=== PATIENT | female | born 1955 | race Caucasian/White ===

== ENCOUNTER → 2017-09-13 | Outpatient (CLI) | payer OTHER ==
[2017-09-13 09:36] LABS: BASO % 0.5 %; BASO ABS # 0.02 K/uL (0-0.2); EOS % 3.3 %; EOS ABS # 0.13 K/uL (0-0.5); HEMATOCRIT 42.3 % (37-47); HEMOGLOBIN 14.2 g/dL (12.0-16.0); LYMPH % 31.6 %; LYMPH ABS # 1.26 K/uL (1.2-3.4); MEAN CORPUSCULAR HEMOGLOBIN 30.2 pg (25-34); MEAN CORPUSCULAR HGB CONC 33.6 g/dl (32-36); MEAN PLATELET VOLUME 10.8 fL (7.4-10.4); MONO % 9.3 %; MONO ABS # 0.37 K/uL (0.11-0.59); NEUT % 55.3 %; NEUT ABS # 2.21 K/uL (1.4-6.5); PLATELET COUNT 214 K/uL (130-400); RED CELL DISTRIBUTION WIDTH CV 12.7 % (11.5-14.5); RED CELL DISTRIBUTION WIDTH SD 41.9 fL (36.4-46.3); WHITE BLOOD COUNT 3.99 K/uL (4.8-10.8)
[2017-09-13 14:32] LABS: BLOOD UREA NITROGEN 23 mg/dl (7-18); CARBON DIOXIDE 32 mmol/L (21-32); CREATININE 0.87 mg/dl (0.60-1.20); GLUCOSE 72 mg/dl (70-99); POTASSIUM 3.9 mmol/L (3.5-5.1); SODIUM 140 mmol/L (136-145)
[2017-09-13 14:43] LABS: CHOLESTEROL 190 mg/dl (0-200); LDL CHOLESTEROL CALCULATED 110 mg/dl
== END | disposition home or self-care (01) ==
LOC: C.LAB1850 07:15
PROVIDERS: ATTEND Nurse Practitioner Adult Health
DX: M19.90 Unspecified osteoarthritis, unspecified site (principal); M25.50 Pain in unspecified joint

== ENCOUNTER → 2017-09-14 | Outpatient (CLI) | payer OTHER ==
--- NOTE | 2017-09-14 17:05 | DIAGNOSTIC IMAGING REPORT ---
RIGHT ANKLE 3 VIEWS HISTORY: W19.XXXA [id number] Ankle pain, [id number] Swelling of ankle COMPARISON: None. FINDINGS: Tiny plantar and posterior calcaneal spurs. Mild soft tissue swelling. No dislocation. Tiny linear ossific density distal to the tip of the lateral malleolus. This is consistent with a age-indeterminate avulsion fracture. No radiopaque foreign bodies. IMPRESSION: Tiny linear ossific density distal to the tip of the lateral malleolus consistent with an age-indeterminate avulsion fracture. Mild soft tissue swelling within the right ankle. Electronically signed by: Theron Cota M.D. 09/14/2017 5:03 PM Dictated Date/Time: 09/14/2017 5:02 PM
--- NOTE | 2017-09-14 17:11 | DIAGNOSTIC IMAGING REPORT ---
L KNEE 3 VIEWS, R KNEE 3 VIEWS CLINICAL HISTORY: M19.90 [id number] Bilateral knee [id number] COMPARISON STUDY: None. FINDINGS: No acute fracture or dislocation within the right or left knee. No significant knee effusions. Cartilage spaces within the left knee are maintained. Mild cartilage space narrowing within the medial compartment of the right knee. There is small patellar osteophytes bilaterally. Small marginal osteophytes within the right knee compartments. Soft tissues are unremarkable. Degenerative changes at the proximal tibial/fibular articulation. IMPRESSION: 1. No fracture or dislocation within the right or left knee. 2. Minor bilateral knee arthritic changes described above. Electronically signed by: Theron Cota M.D. 09/14/2017 5:10 PM Dictated Date/Time: 09/14/2017 5:07 PM
--- NOTE | 2017-09-14 17:11 | DIAGNOSTIC IMAGING REPORT ---
L KNEE 3 VIEWS, R KNEE 3 VIEWS CLINICAL HISTORY: M19.90 [id number] Bilateral knee [id number] COMPARISON STUDY: None. FINDINGS: No acute fracture or dislocation within the right or left knee. No significant knee effusions. Cartilage spaces within the left knee are maintained. Mild cartilage space narrowing within the medial compartment of the right knee. There is small patellar osteophytes bilaterally. Small marginal osteophytes within the right knee compartments. Soft tissues are unremarkable. Degenerative changes at the proximal tibial/fibular articulation. IMPRESSION: 1. No fracture or dislocation within the right or left knee. 2. Minor bilateral knee arthritic changes described above. Electronically signed by: Theron Cota M.D. 09/14/2017 5:10 PM Dictated Date/Time: 09/14/2017 5:07 PM
== END | disposition home or self-care (01) ==
LOC: C.RAD1850 15:57
PROVIDERS: ATTEND Nurse Practitioner Adult Health
DX: M19.90 Unspecified osteoarthritis, unspecified site (principal); M25.561 Pain in right knee; M25.562 Pain in left knee; M25.473 Effusion, unspecified ankle; M25.571 Pain in right ankle and joints of right foot; W19.XXXA Unspecified fall, initial encounter

== ENCOUNTER 2024-07-25 10:49 | Observation (INO) ==
--- NOTE | 2024-06-22 10:41 | PAT Medication Instructions ---
Medication Instructions Date of Service June 22, 2024 Home Medications atorvastatin 20 mg tablet 20 mg PO HS ibuprofen 400 mg tablet 400 mg PO Q8H PRN Pain MEDICATION INSTRUCTIONS: ASK your surgeon for instructions ibuprofen 400 mg tablet 400 mg PO Q8H PRN Pain Take evening before surgery atorvastatin 20 mg tablet 20 mg PO HS Other Notes Remember: NOTHING TO EAT OR DRINK AFTER MIDNIGHT If you have any questions please call us at [phone] or [phone] or [phone] or [phone]
--- NOTE | 2024-07-02 13:08 | Anesthesiology Consultation ---
Date of Service July 02, 2024 Assessment & Plan (1) Encounter for pre-operative examination: - awaiting [facility] PCP clearance regarding abnormal CXR, especially in setting of abnormal CXR 03/2024 and persistent symptoms per patient. Patient made aware of abnormal CXR and to contact her PCP. Optimization form and PAT testing to be faxed to [facility] PCP, Dr. Brianna Astorga. Chart Review Chart Review: Pending: Refer to Additional Notes / Consult section and Patient seen in Pre Admission Testing Teaching & Discussion Pre-Anesthesia Teaching/Discussion Notes: Instructed NPO after midnight before surgery, except medications with 15 cc of water. Medication instructions provided according to the PAT guidelines. History Surgery Operation Date: 07/25/24 10:45 Proposed Procedures p Right Total Knee Arthroplasty - Alfonso Cerda MD Height/Weight Height: 5 ft 8.5 in Weight: 77.7 kg Allergies Allergy/AdvReac Type Severity Reaction Status Date / Time nickel Allergy Unknown skin Verified 06/21/24 15:29 irritation Medications Home Medications Medication Instructions Recorded Confirmed Last Taken atorvastatin 20 mg tablet 20 mg PO HS 01/19/21 06/21/24 06/06/23 ibuprofen 400 mg tablet 400 mg PO Q8H PRN Pain 03/15/24 06/21/24 Unknown Past Medical History Medical History (Updated 07/02/24 @ 16:23 by Enedelia Reagan PA-C) Arthritis Benign colonic polyp removed History of urinary urgency urge incontinence Hyperlipidemia Patient denies h/o stroke, seizures, heart attack, heart failure, DM, HTN, blood clots/DVTs or blood transfusions. Exercise / Class Metabolic Activity II 4-5 Yardwork/Stairs/Walk up hill (denies chest discomfort or shortness of breath with one flight of stairs) Past Family History Family History Other Myocardial infarction Denies family history of Ovarian cancer Prostate cancer Breast cancer Colorectal cancer Past Surgical History Surgical History (Updated 07/02/24 @ 13:05 by Enedelia Reagan PA-C) H/O toe surgery right great toe History of cataract extraction History of tonsillectomy History of tooth extraction Hx of local excision of skin lesion S/P colonoscopy S/P right knee arthroscopy years ago Past Anesthesia History No Hx of Anesthesia Complications and No Family Hx of Anesthesia Complications History of PONV No Hx of PONV and No Hx of Motion Sickness Social History Smoking Status: Never smoker Do You Dip or Chew Tobacco: No Hx Alcohol Use: Yes alcohol intake frequency: holidays/special occasions only Hx Substance Use: No substance use type: does not use Last Used Substance Other:: years ago-occasional use Review of Systems Occasional snoring, denies witnessed apneas. Onset of sore throat and cough productive of sputum. She states currently has residual cough of clear or yellow sputum. Mild chest discomfort when extended coughing-denies currently, denies shortness of breath, wheezing, pleuritic chest discomfort, fever, chills, leg swelling, or myalgias. Patient was advised to call her PCP and notify PAT if symptoms do not resolve by several days before surgery. Patient denies chest pain, shortness of breath, dyspnea on exertion, reflux, fever, chills, wheezing, or palpitations. Physical Exam Vital Signs Vitals BP 130/80 P 79 TEMP 98.9 SP02 95% on RA RESP 18 Physical Patient resting comfortably in chair in no acute distress, alert and oriented, responding appropriately throughout visit Full cervical extension range of motion without pain TMD 3.5 finger breadths Mallampati Score 2 Dentition: several caps/crowns; denies chipped or loose teeth, implants or bridges Lungs: normal respiratory effort. Good air movement, clear throughout to auscultation, no adventitious breath sounds Cardiac: regular rate and rhythm, no murmurs noted Carotid arteries: negative bruit bilat Lab Results Anesthesia Preop Results Results Anesthesia Widget: WBC 6.22 K/ul (4.8-10.8) 07/02/24 Hgb 14.1 g/dl (12.0-16.0) 07/02/24 Hct 42.0 % (37.0-47.0) 07/02/24 Plt 244 K/uL (130-400) 07/02/24 Na 139 mmol/L (136-145) 07/02/24 K 4.0 mmol/L (3.5-5.1) 07/02/24 Cl 104 mmol/L (98-107) 07/02/24 CO2 32 mmol/L (21-32) 07/02/24 BUN 15 mg/dl (6-23) 07/02/24 Creat 0.89 mg/dl (0.6-1.2) 07/02/24 Glucose Level 129 mg/dl (70-99(Fasting)) H 07/02/24 PT 10.5 Seconds (9.0-12.0) 07/02/24 PTT 24 Seconds (21-31) 07/02/24 INR 1.0 (0.9-1.1) 07/02/24 Blood Type A Positive 07/02/24 Antibody Screen NEGATIVE 07/02/24 Testing Electrocardiogram Date: 07/02/24 NSR, rate 79 bpm Chest X-Ray Date: 07/02/24 Early pneumonia right upper lobe.
[~2024-07-25 10:49] MED LIST: BUPIVACAINE 0.5 % 5 MG/1 ML PF 10ML VIAL ONE; ROPIVACAINE 0.5% 5 MG/ML 30 ML VIAL ONE
[2024-07-25] MEDS ORDERED: PROPOFOL IV EMULSION 10 MG/ML 20 ML VIAL IV ONE ×2 (11:03→13:35)
[2024-07-25] MEDS ORDERED: MIDAZOLAM HCL 1 MG/ML 2ML VIAL ONE (11:04)
[2024-07-25] MEDS ORDERED: fentaNYL citrate PF 100 MCG/2 ML VIAL ONE (11:04)
--- NOTE | 2024-07-25 11:04 | History & Physical Bridge Note ---
Date of Service July 25, 2024 History & Physical Bridge Note I have examined the patient, reviewed the History & Physical and in the interval since the performance of the History & Physical I have noted the following changes of clinical significance: no changes noted
[2024-07-25] MEDS: dexAMETHasone**PF** 10 MG/ML VIAL IV SCH (11:13)
[2024-07-25] MEDS: METOCLOPRAMIDE HCL 10 MG TABLET PO SCH (11:13)
[2024-07-25] MEDS: ACETAMINOPHEN 500 MG TAB PO SCH ×2 (11:13→21:59)
[2024-07-25] MEDS: CeleBREX 200 MG CAP PO SCH (11:13)
[2024-07-25] MEDS: LR 60ML/HR IV SCH (11:13)
[2024-07-25] MEDS: FAMOTIDINE 20 MG TAB PO SCH (11:13)
[2024-07-25] MEDS: LR 500ML BOLUS, THEN 15ML/HR IV SCH (11:14)
[2024-07-25] MEDS: ceFAZolin 2000MG 2,000 MG/15 ML SYR IV SCH (12:43)
[2024-07-25] MEDS ORDERED: ONDANSETRON INJ 2 MG/ML 2 ML VIAL ONE (12:50)
[2024-07-25] MEDS: ROPIV 0.5% 246mg, Ketorolac 30mg, EPINEPHrine 0.5mg in NSS INFIL SCH (13:21)
[2024-07-25] MEDS: ORTHO JOINT ANESTHETIC ONE (13:21)
[2024-07-25] MEDS: TRANEXAMIC ACID 1,000 MG **IV Intra-op IV SCH (13:39)
--- NOTE | 2024-07-25 14:32 | Operative Report ---
PG Post Operative Report Pre & Post Diagnosis Operation Date: 07/25/24 12:30 Pre-Op Diagnosis: Right Knee Degenerative Joint Disease Post-Op Diagnosis: Right Knee Degenerative Joint Disease I identified the patient and participated in the time-out.: Yes Procedure Operation Date: 07/25/24 12:30 Actual Procedures p Right Total Knee Arthroplasty(Right) - Alfonso Cerda MD Surgeon Alfonso Cerda MD [facility] Magdi Vences PA-C Estimated Blood Loss 50 Findings Consistent with Post-Op Diagnosis Operative findings revealed a valgus aligned knee. She has advanced lateral compartment arthritis with [id number] disease the entire lateral compartment. She also had some grade 4 changes of the patella. Moderate-sized joint effusion. Specimens Right knee sent for pathology. Anesthesia Type Spinal MAC Complications none Indications Patient is a 68-year-old female who had a several year history of increasing right knee pain discomfort and progressive limitations due to the pain. She been through extensive conservative treatment which became less successful over time. X-rays show advanced right knee lateral compartment arthritis. She elected proceed with total knee arthroplasty. Patient reports an nickel allergy and therefore we used a Cabrera [employer]hew journey 2 zirconium knee arthroplasty. Description of Procedure Operative implants consist of: 1 Cabrera [employer] Nephew journey 2 size 5 right posterior stabilized femoral component 2. Cabrera [employer] Nephew right size 3 tibial tray. 3. 9 mm posterior stabilized polyethylene insert. 4. 32 x 9 all poly patella. The patient was taken to the op room, identified, placed on the operating table in the supine position. All conductors were appropriately padded. IV antibiotics arrived by anesthesia team. A spinal anesthetic and adductor canal block had been provided provided in the holding area. Holder catheter was placed in sterile fashion. Right thigh high tourniquet was then placed in the right lower extremities then prepped and draped in the usual sterile fashion. The right leg was elevated and exsanguinated with use of an Esmarch and a turn was placed at 300 mmHg. An anterior approach of the right knee was then performed to longitudinal incision centered over the patella. Sharp dissection was got through subcutaneous tissue down the extensor mechanism. A medial parapatellar arthrotomy incision was made. Some subperiosteal dissection was carried out medially. The fat pad was dissected from Neath patella tendon. The lateral patellofemoral ligament was released. Patella subluxated laterally and the knee was flexed. The osteophytes taken off distal femur. The ACL and PCL then released from the distal femur and the tibia subluxated anteriorly. The external treatment LYMErix then placed on the anterior face the tibia and adjust ed 8 mm medially. Proximal tibial cut was made remove about 3 mm of bone from the medial side. Tibia sized to a size 3. Attention drawn the femur. The distal femur was entered with a sharp drill. Intramedullary canal was suction. A right 5 degree valgus cutting guide was placed. This femoral cutting block was pinned in place. The distal femoral cut was adjusted to take an additional 3 mm of bone off the distal femur and the cut was made. The femur was then sized to exactly a size 5. The AP cutting block was pinned parallel to the epicondylar axis which was 5 degrees of external rotation. The anterior cut, anterior cord, posterior cut, posterior chamfer cut, anterior chamfer cuts were made. The knee was then flexed. The remnants of the medial lateral menisci were excised. The osteophytes taken off the posterior aspect the femur. A trial femoral component was placed. The trochanteric device was then placed in the reamer and box chisel were then used to create the defect for the box. The trochlear component was placed. The tibia was then subluxated anteriorly and the tibia was pinned in place in Tala external rotation. The drill and stem punch use great defect in proximal tibia for the tibial tray. The knee was then trialed and the 9 mm insert fit most appropriately. Attention drawn the patella. The patella was cleaned of all soft tissues. Patella thickness measured 21 mm in thickness and was cut down to 14. It was sized to a size 32 patella. The locals were drilled for a 32 patella. The lateral aspect removed. Patella button was placed. Knee was taken through range of motion patella tracked nicely with no thumbs test. Attention drawn to placement permanent components. Nupathe all trial components were removed. Bone plug was placed into this femur limit blood loss. Double batch [place] G cement was mixed. A Cabrera [employer] Nephew size 5 right posterior stabilized femoral component, size 3 tibial tray, a 9 mm posterior Byce polyethylene insert, and a 32 x 9 all poly patella then cemented in place. The knee was brought out into full extension till cement hardened. Final cement check was then performed. The pericapsular tissues were injected with total of 100 cc of Ortho mix. Patient did receive 1 g tranexamic acid. The tourniquet was then let down for final turn time 56 minutes. Hemostasis assured with electrocautery. Extensor Meclomen then closed with combination 1 PDS suture #0 Vicryl suture in a [id number] fashion. Extensor Meclomen was checked found to be intact with subcutaneous tissue then closed with 2 Dexon suture in buried interrupted fashion skin was closed skin joaquin. Leg was then cleaned and dried and sterile dressed with Xeroform, 4 fours, sterile cast padding, Jayme bandage were applied. Patient then transferred to the recovery room in stable condition. Patient tolerated procedure well and there were no complications. Magdi Vences, my physician litigation assistant, was present for the entire procedure. His assistance was essential and required for appropriate patient positioning, prepping and draping, surgical exposure, performing the technical details of the operation, placement the implants, closure of the wound, and placement of the sterile bandage. I attest to the content of the Intraoperative Record and any orders documented therein. Any exceptions are noted below.
--- NOTE | 2024-07-25 14:52 | XRay Report ---
XR knee RT 1 or 2V routine CLINICAL HISTORY: Surgical Post Op COMPARISON: None FINDINGS: Right knee prosthesis shows no hardware complication. There is expected soft tissue gas. S kin joaquin are present. IMPRESSION: Unremarkable postoperative exam. ACT 112: Negative or not required by law. Electronically signed by: Nathanael Prescott M.D. 07/25/2024 2:50 PM
--- NOTE | 2024-07-25 15:17 | Anesthesiology Progress Note ---
Date of Service July 25, 2024 Anesthesia Post Procedure Vital Signs Vital Signs: Temp Pulse Resp BP Pulse Ox O2 Del Method O2 Flow Rate 07/25/24 15:05 88 17 134/79 5 L Room Air 07/25/24 14:55 89 15 135/71 96 Room Air 07/25/24 14:45 94 H 16 123/78 98 Room Air 07/25/24 14:45 95 H 22 131/76 97 Room Air 07/25/24 14:35 93 H 19 126/69 96 Room Air 07/25/24 14:28 36 C L 94 H 20 114/58 L 98 Oxymask 6 07/25/24 10:48 36.6 C 90 20 154/100 H 97 Room Air Pain Intensity Bilateral Head: Pain Intensity: 3 Notes Mental Status: alert / awake / arousable Patient Amnestic to Procedure: Yes Nausea / Vomiting: adequately controlled Pain: adequately controlled Airway Patency, RR, SpO2: stable & adequate BP & HR: stable & adequate Hydration State: stable & adequate Neuraxial Anesthesia: was administered and sensory block is resolving Anesthetic Complications: no major complications apparent
[2024-07-25] MEDS ORDERED: bisacodyL 10 MG SUPP PR PRN (17:06)
[2024-07-25] MEDS ORDERED: ALUMINUM/MAGNESIUM SUSP 30 ML UDC PO PRN (17:06)
[2024-07-25] MEDS ORDERED: HYDROmorphone INJ 0.5 MG/0.5 ML SYR IV PRN (17:06)
[2024-07-25] MEDS ORDERED: NALOXONE HCL 0.4 MG/1 ML VIAL/CARP IV PRN (17:06)
[2024-07-25] MEDS ORDERED: METOCLOPRAMIDE HCL INJ 5 MG/ML 2 ML VIAL IV PRN (17:06)
[2024-07-25] MEDS ORDERED: MAGNESIUM HYDROXIDE SUSP 30 ML UDC PO PRN (17:06)
[2024-07-25] MEDS ORDERED: ONDANSETRON INJ 2 MG/ML 2 ML VIAL IV PRN (17:06)
[2024-07-25] MEDS: KETOROLAC TROMETHAMINE 15 MG/ML VIAL IV SCH (17:51)
[2024-07-25] MEDS: ASCORBIC ACID 500 MG TAB PO SCH (18:30)
--- OUTSIDE RECORDS SUMMARY | 2024-07-25 20:59 | External Medical Summary | Summary of Care ---
Author Name Unknown Organization [facility] Address [address] [place] [address] Phone [phone] Care Team Providers Care Health Social Work Professor Name Role Phone Brianna Astorga DO Primary Care Provider [phone] Reason for Visit * Reason Comments Follow Up Pt here for a f/u fo rm an abnormal chest x ray, pt has surgery (knee replacement) on 07/25/24 Encounter Details Date Type Department Care Team (Latest Contact Info) Description 07/13/2024 9:40 AM EDT Office Visit Family Practice [facility] [address] [facility] [place] [address] Francis Wilkins [facility] [address] [facility] [address] Community acquired pneumonia of right upper lobe of lung*; Primary osteoarthritis of one knee, right Allergies Active Allergy Reactions Criticality Noted Date Comments Azithromycin 07/04/2024 Itching of extremities Nickel 02/18/2014 Contact dermatitis Other Reaction(s): skin irritation documented as of this encounter (statuses as of 07/13/2024) Medications Benefiber Oral Powder Take by mouth . Active Atorvastatin Calcium 20 MG Oral Tablet (Lipitor)Indica tions:Hyperlipi demia LDL goal <160 TAKE 1 TABLET EVERY MORNING 90 Tablet 2 5 Active Fish Oil 300 MG Oral Capsule Take by mouth. 07/14/19 25 Discontinu ed(Medicat ion List Clean Up) Vitamin D3-Vitamin C 1000-500 UNIT-MG Oral Capsule Take by mouth. 07/14/19 25 Discontinu ed(Medicat ion List Clean Up) documented as of this encounter (statuses as of 07/13/2024) Active Problems Problem Noted Date Diagnosed Date Polyarthralgia 09/21/2023 Seborrheic keratoses 02/04/2021 Hyperlipidemia LDL goal <160 documented as of this encounter (statuses as of 07/13/2024) Immunizations Name Administration Dates Next Due COVID-19 mRNA, LNP-s, No Pre serve, 2-Dose Series (Pfizer) 03/20/2021,07/21/2020,06/30/2020 COVID-19, MRNA-LNP, PF, 30 M CG/0.3 mL, 12 YRS AND ABOVE, IM (PFIZER-Comirnaty) 01/12/2024 Pneumococcal Conjugate Vacc, 13 Valent (Prevnar) 01/15/2021 Pneumococcal Polysaccharide PPV23 (Pneumovax) 02/08/2022 Seasonal Influenza Vac., MDV , IM, 0.5 mL (Fluzone) 01/03/2020,02/21/2017,03/24/2015 Seasonal Influenza, High Dos e, Trivalent, PF, IM (Fluzone HD) 01/06/2024 Seasonal Influenza, PF, 6 M & above, IM , (FluLaval or Fluzone) 01/24/2018 Seasonal Influenza, Quadriva lent Hd (Fluzone Hd) 02/09/2023,02/08/2022,02/25/2021 Seasonal Influenza, Quadriva lent, No Preserve, IM 02/06/2019,02/21/2017,03/18/2016 TDAP (age 10 and older)(Boostrix) 04/17/2015, Varicella Zoster Vaccine (Adult) 12/21/2016 Zoster Vaccine Recombinant (Shingrix) 03/14/2020 ,01/03/2020 documented as of this encounter Social History Tobacco Use Types Packs/Day Years Used Date Smoking Tobacco: Never Passive Smoke Exposure: Past Smokeless Tobacco: Never Comments:Father smoked as a child Alcohol Use Standard Drinks/Week Comments Yes 0 (1 standard drink = 0.6 oz pur e alcohol) socially PHQ-2 Answer Date Recorded PHQ Adult Total Score 0 03/06/2024 Hunger Vital Sign Answer Date Recorded Within the past 12 months, y ou worried that your food would run out before you got the money to buy more. Never true 02/29/20 24 Within the past 12 months, t he food you bought just didn't last and you didn't have money to get more. Never true 02/29/2024 Childcare Answer Date Recorded Do you feel overwhelmed with taking care of a child, family member or friend? No 02/29/2024 Does your family need help f inding childcare? (Household - for ages 0-17 years) Not on file 02/29/2024 Clothing Answer Date Recorded Have you been unable to get clothing when it was really needed? No 02/29/2024 Is your family able to get c lothes or diapers when needed? (Household - for ages 0-17 years) Not on file 02/29/2024 Personal Safety Answer Date Recorded Do you feel unsafe or have concerns for your saf ety? No 02/29/2024 Do you have concerns for you r family's safety? (Household - for ages 0-17 years) Not on file 02/29/2024 Utilities Answer Date Recorded Do you have trouble paying y our heating, water, or electric bill? No 02/29/2024 Is your family able to pay t he heat, water, or electric bill? (Household - for ages 0-17 years) Not on file 02/29/2024 Does your family have access to good internet? (Household - for ages 0-17 years) Not on file 02/29/2024 Employment Status Answer Date Recorded Are you unemployed or without regular income? No 02/29/2024 Does the household have a re gular source of income? (Household - for ages 0-17 years) Not on file 02/29/2024 Social Connections Answer Date Recorded How often do you feel lonely or isolated from th ose around you? Never 02/29/2024 Financial Resource Strain Answer Date R ecorded Do you have any trouble payi ng for your medications, or do you think you might in the future? No 02/29/2024 Does your family have troubl e paying for medicine? (Household - for ages 0-17 years) Not on file 02/29/2024 Transportation Needs Answer Date Record ed Do you have trouble getting a ride to medical visits or work? (Adult - for ages 18 years and over) Not on file 02/29/2024 Does your family have a hard time getting a ride to doctors visits? (Household - for ages 0-17 years) Not on file 02/29/2024 Has lack of transportation k ept you from medical appointments, meetings, work, or from getting things needed for daily living? Check all that apply. No 02/29/2024 Do you (or your family) have trouble finding or paying for a ride (transportation)? (Household - for ages 0-17 years) Not on file 02/29/2024 Housing Stability Answer Date Recorded Do you currently live in a s helter or have no steady place to sleep at night? No 02/29/2024 Do you think you are at risk of becoming homeless? (Adult - for ages 18 years and over) Not on file 02/29/2024 Does your family worry about paying for your home or becoming homeless? (Household - for ages 0-17 years) Not on file 1 Are you homeless or worried that you might be in the future? No 02/29/2024 Are you (or your family) karon eless or worried that you might be in the future? (Household - for ages 0-17 years) Not on file Food Insecurity Answer Date Recorded Do you need food for this week? No 02/29/2024 Are you able to get enough f ood for your family? (Household - for ages 0-17 years) Not on file 02/29/2024 Does your family need food t his week? (Household - for ages 0-17 years) Not on file 02/29/2024 Do you always have enough fo od for your family? (Household - for ages 0-17 years) Not on file 02/29/2024 Food Insecurity Answer Date Recorded Within the past 12 months, y ou worried that your food would run out before you got the money to buy more. Never true 02/29/20 24 Within the past 12 months, t he food you bought just didn't last and you didn't have money to get more. Never true 02/29/2024 Do you need food for this week? No 02/29/2024 Comments No Sex and Gender Information Value Date Recorded Sex Assigned at Female 02/09/2023 1:36 PM EDT Legal Sex Female 5:47 AM EST Gender Identity Female 02/09/2023 1:36 PM EDT Sexual Orientation Straight 02/09/2023 1: 36 PM EDT documented as of this encounter Last Filed Vital Signs Vital Sign Reading Time Taken Comments Blood Pressure 124/76 07/13/2024 9:38 AM EDT Pulse 80 07/13/2024 9:38 AM EDT Temperature 36.8 C (98.2 F) 07/13/2024 9:38 AM ED T Respiratory Rate 16 07/13/2024 9:38 AM EDT Oxygen Saturation 98% 07/13/2024 9:38 AM EDT Inhaled Oxygen Concentration - - Weight 76.5 kg (168 lb 9.6 oz) 07/13/2024 9:38 A M EDT Height 174 cm (5' 8.5") 07/13/2024 9:38 AM EDT Body Mass Index 25.26 07/13/2024 9:38 AM EDT documented in this encounter Progress Notes * Francis Wilkins MD - 07/13/2024 10:01 AM EDT Images from the original note were not included. History of Present Illness Peyton Gonzalez is a 68 year old female that presents for Follow Up (Pt here for a f/u form an abnormal chest x ray, pt has surgery (knee replacement) on 07/25/24) For upcoming right TKA with Dr Cerda at [facility] due to primary osteoarthritis of knee. Physical Exam BP 124/76 (BP Site: Left Arm, BP Position: Sitting, BP Cuff Size: Regular) | Pulse 80 | Temp 98.2 F (36.8 C) (Tympanic) | Resp 16 | Ht 5' 8.5" (1.74 m) | Wt 168 lb 9.6 oz (76.5 kg) | SpO2 98% | BMI 25.26 kg/m | BSA 1.92 m AAOx3 Normal affect NCAT/ PERRL Throat clear RRR A few episodes of dry non productive cough Lungs CTABL Ext warm and well perfused No gross neuro deficits Antalgic gait pattern I have reviewed most recent labs None Assessment and Plan Community acquired pneumonia of right upper lobe of lung - symptoms resolved. Will get repeat CXR to ensure resolution. - XR CHEST 1 VIEW Primary osteoarthritis of one knee, right - for upcoming TKA w/ Dr Cerda at [facility] on 07/25/2024. Reviewed CXR and and lab work. She should be considered LOW RISK for perioperative ASCE/MACE by Clement criteria (<1%). - XR CHEST 1 VIEW Wrap-Up Prn/scheduled Time: I spent a total of 30-39 minutes (exact time 35 mins) on the date of service in preparation, delivery, and documentation of the care provided to Peyton Gonzalez excluding any time spent in the performance of separately billed services. documented in this encounter Plan of Treatment Scheduled Orders Name Type Priority Associated Diagnoses Orde r Schedule XR CHEST 1 VIEW Medical Imaging Routine Community acquired pneumonia of right upper lobe of lung Primary osteoarthritis of one knee, right Ordered: 07/13/2024 Health Maintenance Due Date Last Done Comments Cologuard 11/21/2000 Fecal Occult Blood Test 11/21/2000 Sigmoidoscopy 11/21/2000 Colonoscopy 02/24/2019 02/24/2018, 08/31, 09/24/2016, Additional history exists Adult Wellness Visit 11/21/2021 Colorectal Cancer Screening 07/16/2024 Postponed from 11/21/2000 (Other) Mammogram 03/02/2025 03/02/2024, 02/01, 02/26/2022, Additional history exists Depression Screening 03/06/2025 03/06/2024 DTap/Tdap Vaccines (3 - Td or Tdap) 04/17/2025 04/17/2015, 06/25/2014 Diabetes Screening 07/03/2027 07/02/2024, 1 05/12/2023, 09/21/2023, Additional history exists DXA Scan 03/17/2028 03/17/2021 Lipid Panel 03/12/2029 03/12/2024, 1009/2022, 01/15/2022, Additional history exists Pap Smear Discontinued 02/03/2015 (Done elsewhere), 02/03/2015, 01/30/2014 (Done elsewhere) RETIRED - COLONOSCOPY-ANNUAL AGES 18-100 Discontinued 02/24/2018, 09/24/2016, 09/24/2016, Additional history exists Zoster Vaccines Completed 03/14/2020, 07/2019, 02/14/2017, Additional history exists Pneumococcal Vaccine: 50+ Years Completed 02/08/2022, 01/15/2021 Influenza Vaccine (FLU shot) Completed 01/06/2024, 02/09/2023, 02/08/2022, Additional history exists COVID-19 Vaccine Discontinued 01/12/2024, , 07/21/2020, Additional history exists HPV (Gardasil) Vaccine Aged Out No lo nger eligible based on patient's age to complete this topic Hepatitis B Vaccine Aged Out No longe r eligible based on patient's age to complete this topic Hepatitis C Screening Discontinued MENINGOCOCCAL (MENACTRA/MENVEO) Aged Out No longer eligible based on patient's age to complete this topic Meningitis B Vaccine (Bexsero/Trumemba) Aged Out No longer eligible based on patient's age to complete this topic documented as of this encounter Medical Devices Not on filedocumented as of this encounter Visit Diagnoses Diagnosis Community acquired pneumonia of right upper lobe of lung- Primary Primary osteoarthritis of one knee, right documented in this encounter Advance Directives Documents on File Type Date Recorded Patient Oracle Database Administrator Expl anation Advance Directives and Living Will 01/15/2022 ADVANCE DIRECTIVE / LIVING WILL Power of Traveling Inventory Associate 01/15/2022 POWER OF A TTORNEY Care Teams Health Social Work Professor Relationship Specialty Start Date End Date Brianna Astorga DO [address] [place] [address] PCP - General Family Medicine 12/21/16 documented as of this encounter
--- OUTSIDE RECORDS SUMMARY | 2024-07-25 20:59 | External Medical Summary | Summary of Care ---
Author Name Unknown Organization [facility] Address [address] [place] [address] Phone [phone] Care Team Providers Care Director Of Labor And Delivery Name Role Phone Brianna Astorga DO Primary Care Provider [phone] Reason for Visit * Reason Onset Date Comments Advice 07/10/2024 Encounter Details Date Type Department Care Team (Late st Contact Info) Description 07/10/2024 Telephone Family Practice [facility] [address] [place] [address] Brianna Astorga DO [address] [facility] [place] [address] Advice Allergies Active Allergy Reactions Criticality Noted Date Comments Azithromycin 07/04/2024 Itching of extremities Nickel 02/18/2014 Contact dermatitis documented as of this encounter (statuses as of 07/11/2024) Medications Benefiber Oral Powder Take by mouth . Active Fish Oil 300 MG Oral Capsule Take by mouth. Active Vitamin D3-Vitamin C 1000-500 UNIT-MG Oral Capsule Take by mouth. Active Atorvastatin Calcium 20 MG Oral Tablet (Lipitor)Indicat ions:Hyperlipide veronica LDL goal <160 TAKE 1 TABLET EVERY MORNING 90 Tablet 2 06/29/2024 Active Amoxicillin-Pot Clavulanate 875-125 MG Oral Tablet (Augmentin)Indic ations:Community acquired pneumonia of right upper lobe of lung Take 1 Tablet by mouth in the morning and 1 Tablet before bedtime. Do all this for 7 days. 14 Tablet 07/04/2024 07/12/19 25 Active Doxycycline Hyclate 100 MG Oral CapsuleIndicatio ns:Community acquired pneumonia of right upper lobe of lung Take 1 Capsule by mouth in the morning and 1 Capsule before bedtime. Do all this for 7 days. Take for 7 days. 14 Capsule 07/04/2024 07/12/19 25 Active documented as of this encounter (statuses as of 07/11/2024) Active Problems Problem Noted Date Diagnosed Date Polyarthralgia 09/21/2023 Seborrheic keratoses 02/04/2021 Hyperlipidemia LDL goal <160 documented as of this encounter (statuses as of 07/11/2024) Immunizations Name Administration Dates Next Due COVID-19 mRNA, LNP-s, No Pre serve, 2-Dose Series ([employer]) 03/20/2021,07/21/2020,06/30/2020 COVID-19, MRNA-LNP, PF, 30 M CG/0.3 mL, 12 YRS AND ABOVE, IM ([employer]) 01/12/2024 Pneumococcal Conjugate Vacc, 13 Valent (Prevnar) [...] Packs/Day Years Used Date Smoking Tobacco: Never Smokeless Tobacco: Never Alcohol Use Standard Drinks/Week Comments Yes 0 [...] PM EDT documented as of this encounter Miscellaneous Notes * Telephone Encounter - Francis Wilkins MD - 07/10/2024 4:24 PM EDT Will need f/u visit prior to that date if possible * Telephone Encounter - Lakshmi Marroquin RN - 07/10/2024 1:19 PM EDT Received fax from Dr Cerda's office. Pt schedule for R knee replacement on 07/25/2024. "Please evaluate patient for further management especially in setting of pneumonitis 03/2024 and advise if patient is optimized for elective surgery or if further eval, testing or intervention will be needed prior to testing" Abnormal CXR on 07/02/2024. Called pt and she has two more doses of antibiotics to take, feeling better but still has occ cough-not as much mucous Does pt need office visit or just repeat CXR? Not sure which provider will address but I have labs and xray report at my desk. documented in this encounter Plan of Treatment Health Maintenance Due Date Last Done Comments Hepatitis C Screening 11/21/1973 Cologuard 11/21/2000 Fecal Occult Blood Test 11/21/2000 Sigmoidoscopy 11/21/2000 Colonoscopy 02/24/2019 02/24/2018, 0509/2016, 09/24/2016, Additional history exists Colorectal Cancer Screening 02/24/2019 Adult Wellness Visit 11/21/2021 COVID-19 Vaccine ( season) 2024 01/12/2024, 03/20/2021, 07/21/2020, Additional history exists Mammogram 03/02/2025 03/02/2024, 02/01, 02/26/2022, Additional history exists Depression Screening 03/06/2025 03/06/2024 DTap/Tdap Vaccines (3 - Td or Tdap) 04/17/2025 04/17/2015, 06/25/2014 Diabetes Screening 07/03/2027 07/02/2024, 1 05/12/2023, 09/21/2023, Additional history exists DXA Scan 03/17/2028 03/17/2021 Lipid Panel 03/12/2029 03/12/2024, 09/2022, 01/15/2022, Additional history exists Pap Smear Discontinued 02/03/2015 (Done elsewhere), 02/03/2015, 01/30/2014 (Done elsewhere) RETIRED - COLONOSCOPY-ANNUAL AGES 18-100 Discontinued 02/24/2018, 09/24/2016, 09/24/2016, Additional history exists Zoster Vaccines Completed 03/14/2020, 07/2019, 02/14/2017, Additional history exists Pneumococcal Vaccine: 50+ Years Completed 02/08/2022, 01/15/2021 Influenza Vaccine (FLU shot) Completed 01/06/2024, 02/09/2023, 02/08/2022, Additional history exists HPV (Gardasil) Vaccine Aged Out No lo nger eligible based on patient's age to complete this topic Hepatitis B Vaccine Aged Out No longe r eligible based on patient's age to complete this topic MENINGOCOCCAL (MENACTRA/MENVEO) Aged Out No longer eligible based on patient's age to complete this topic Meningitis B Vaccine (Bexsero/Trumemba) Aged Out No longer eligible based on patient's age to complete this topic documented as of this encounter Medical Devices Not on filedocumented as of this encounter Advance Directives Documents on File Type Date Recorded Patient Cupola Man Expl anation Advance Directives and Living Will 01/15/2022 ADVANCE DIRECTIVE / LIVING WILL Power of Sampler Radioactive Waste 01/15/2022 POWER OF A TTORNEY Care Teams Director Of Labor And Delivery Relationship Specialty Start Date End Date Brianna Astorga DO [address] [place] [address] PCP - General Family Medicine 12/21/16 documented as of this encounter
--- OUTSIDE RECORDS SUMMARY | 2024-07-25 20:59 | External Medical Summary | Summary of Care ---
Author Name Unknown Organization [facility] Address [address] [place] [address] Phone [phone] Care Team Providers Care Toll Gate Tender Name Role Phone Brianna Astorga DO Primary Care Provider Encounter Details Date Type Department Care Team (Late st Contact Info) Description 07/02/2024 Result Scan Unspecified Department <No scans attached> Allergies Active Allergy Reactions Criticality Noted Date Comments Nickel 02/18/2014 Contact dermatitis documented as of this encounter (statuses as of 07/04/2024) Medications Benefiber Oral Powder Take by mouth . Active Fish Oil 300 MG Oral Capsule Take by mouth. Active Vitamin D3-Vitamin C 1000-500 UNIT-MG Oral Capsule Take by mouth. Active guaiFENesin-Cod eine 100-10 MG/5ML Oral Syrup (Robitussin AC)Indications: Acute cough Take 5 mL by mouth every 4 hours as needed for Cough. 120 mL 03/07/2024 Active Atorvastatin Calcium 20 MG Oral Tablet (Lipitor)Indica tions:Hyperlipi demia LDL goal <160 TAKE 1 TABLET EVERY MORNING 90 Tablet 2 06/29/2024 Active documented as of this encounter (statuses as of 07/04/2024) Active Problems Problem Noted Date Diagnosed Date Polyarthralgia 09/21/2023 Seborrheic keratoses 02/04/2021 Hyperlipidemia LDL goal <160 documented as of this encounter (statuses as of 07/04/2024) Immunizations Name Administration Dates Next Due COVID-19 mRNA, LNP-s, No Pre serve, 2-Dose Series ([employer]) 03/20/2021,07/21/2020,06/30/2020 COVID-19, MRNA-LNP, PF, 30 M CG/0.3 [...] No 02/29/2024 Does the household have a [facility] source of income? (Household - for ages [...] PM EDT documented as of this encounter Plan of Treatment Health Maintenance Due Date Last Done Comments Hepatitis C Screening 11[birth year]21[birth year]1973 Cologuard 11/21/2000 Fecal Occult Blood Test 11/21/2000 Sigmoidoscopy 11/21/2000 Colonoscopy 02/24/2019 02/24/2018, 08/31, 09/24/2016, Additional history exists Colorectal Cancer Screening 02/24/2019 Adult Wellness Visit 11/21/2021 COVID-19 Vaccine ( season) 2024 01/12/2024, 03/20/2021, 07/21/2020, Additional history exists Mammogram 03/02/2025 03/02/2024, 02/01, 02/26/2022, Additional history exists Depression Screening 03/06/2025 03/06/2024 DTap/Tdap Vaccines (3 - Td or Tdap) 04/17/2025 04/17/2015, 06/25/2014 Diabetes Screening 03/12/2027 07/02/2024, 1 05/12/2023, 09/21/2023, Additional history exists [...] Not on filedocumented as of this encounter Procedures Procedure Name Priority Date/Time Associated Diagnosis Comments EKG SCANNED RESULT 07/02/2024 RADIOLOGY SCANNED RESULT 07/02/2024 documented in this encounter Results * RADIOLOGY SCANNED RESULT (07/02/2024) 07/02/2024 us No Physician Data Unknown DIAGNOSTIC RADIOLOGY S ERVICES Final Result * EKG SCANNED RESULT (07/02/2024) 07/02/2024 us No Physician Data Unknown EKG Final Result documented in this encounter Advance Directives Documents on File Type Date Recorded Patient Lumber Cutter Expl anation Advance Directives and Living Will 01/15/2022 ADVANCE DIRECTIVE / LIVING WILL Power of Metal Rolling Mill Operator 01/15/2022 POWER OF A TTORNEY Care Teams Toll Gate Tender Relationship Specialty Start Date End Date Brianna Astorga DO [address] [place] [address] PCP - General Family Medicine 12/21/16 documented as of this encounter
--- OUTSIDE RECORDS SUMMARY | 2024-07-25 20:59 | External Medical Summary | Summary of Care ---
Author Name Unknown Organization [facility] Address [address] [place] [address] Phone [phone] Care Team Providers Care Logistics Center Manager Name Role Phone Brianna Astorga DO Primary Care Provider [phone] Encounter Details Date Type Department Care Team (Late st Contact Info) Description 07/04/2024 Orders Only Family Practice [facility] [address] [facility] [place] [address] Brianna Astorga DO [address] [facility] [address] Allergies Active Allergy Reactions Criticality Noted Date [...] Procedure Name Priority Date/Time Associated Diagnosis Comments CHEMISTRY-OUTSIDE Routine 07/02/2024 documented in this encounter Results * (ABNORMAL) CHEMISTRY-OUTSIDE (07/02/2024) Not all results display below - see scan for full detail OUTSIDE LAB (SEE SCANNED REPORT) Comment:SCAN INCL: PRE OP LA BS: CBCD,PT, INR PTT,BMP CREATININE 0.89 0.6 - 1.2 MG/DL OUTSIDE LAB (SEE SCANNED REPORT) EGFR 70.57 OUTSIDE LA B (SEE SCANNED REPORT) POTASSIUM 4.0 3.5 - 5.1 MMOL/L OUTSIDE LAB (SEE SCANNED REPORT) GLUCOSE 129(A) 70 - 99 MG/DL OUTSIDE LAB (SEE SCANNED REPORT) HOURS FASTING OUTSID E LAB (SEE SCANNED REPORT) TRIGLYCERIDES-OUT SIDE LAB OUTSIDE LAB (SEE SCANNED REPORT) CHOLESTEROL-OUTSI DE LAB OUTSIDE LAB (SEE SCANNED REPORT) HDL-OUTSIDE LAB OUTS JUSTEN LAB (SEE SCANNED REPORT) CHOL/HDL RATIO-OUTSIDE LAB OUTSIDE LA B (SEE SCANNED REPORT) LDL (CALCULATED)-OUTS JUSTEN LAB OUTSIDE LAB (SEE SCANNED REPORT) LDL (DIRECT MEASURE)-OUTSIDE LAB OUTSIDE LAB (SEE SCANNED REPORT) HEMOGLOBIN, [id number] LAB OUTSIDE LAB (SEE SCANNED REPORT) PHOSPHORUS-OUTSID E LAB OUTSIDE LAB (SEE SCANNED REPORT) PTH-OUTSIDE LAB OUTS JUSTEN LAB (SEE SCANNED REPORT) MICROALBUMIN RATIO-OUTSIDE LAB OUTSIDE LA B (SEE SCANNED REPORT) PROTEIN, UA-OUTSIDE LAB OUTSIDE LAB (SEE SCANNED REPORT) HGB 14.1 12.0 - 16.0 G/DL OUTSIDE LAB (SEE SCANNED REPORT) 07/02/2024 us Alfonso Cerda MD LABORATORY Final Re sult OUTSIDE LAB (SEE SCANNED REPORT) documented in this encounter Advance Directives Documents on File Type Date Recorded Patient Electrical Controls Designer Expl anation Advance Directives and Living Will 01/15/2022 ADVANCE DIRECTIVE / LIVING WILL Power of Engineering Designer 01/15/2022 POWER OF A TTORNEY Care Teams Logistics Center Manager Relationship Specialty Start Date End Date Brianna Astorga DO [address] [id number] PCP - General Family Medicine 12/21/16 documented as of this encounter
--- OUTSIDE RECORDS SUMMARY | 2024-07-25 20:59 | External Medical Summary | Summary of Care ---
Author Name Unknown Organization [facility] Address [address] [place] [address] Phone [phone] Care Team Providers Care Web Content Manager Name Role Phone Brianna Astogra DO Primary Care Provider [phone] Reason for Visit * Reason Comments Pneumonia X-ray Tuesday showed pneumonia, upcoming knee surgery 07/25 Encounter Details Date Type Department Care Team (Late st Contact Info) Description 07/04/2024 2:00 PM EST Office Visit [facility] [address] [facility] [place] [address] Brianna Astorga DO [facility] [place] [address] Community acquired pneumonia of right upper lobe of lung* Allergies Active Allergy Reactions Criticality Noted Date Comments Azithromycin 07/04/2024 Itching of extremities Nickel 02/18/2014 Contact dermatitis documented as of this encounter (statuses as of 07/06/2024) Medications Benefiber Oral Powder Take by mouth . Active Fish Oil 300 MG Oral Capsule Take by mouth. Active Vitamin D3-Vitamin C 1000-500 UNIT-MG Oral Capsule Take by mouth. Active Atorvastatin Calcium 20 MG Oral Tablet (Lipitor)Indicat ions:Hyperlipide veronica LDL goal <160 TAKE 1 TABLET EVERY MORNING 90 Tablet 2 Active Amoxicillin-Pot Clavulanate 875-125 MG Oral Tablet (Augmentin)Indic ations:Community acquired pneumonia of right upper lobe of lung Take 1 Tablet by mouth in the morning and 1 Tablet before bedtime. Do all this for 7 days. 14 Tablet 5 07/12/19 25 Active Doxycycline Hyclate 100 MG Oral CapsuleIndicatio ns:Community acquired pneumonia of right upper lobe of lung Take 1 Capsule by mouth in the morning and 1 Capsule before bedtime. Do all this for 7 days. Take for 7 days. 14 Capsule 5 07/12/19 25 Active guaiFENesin-Code ine 100-10 MG/5ML Oral Syrup (Robitussin AC)Indications:A cute cough Take 5 mL by mouth every 4 hours as needed for Cough. 120 mL 4 07/05/19 25 Discontinu ed(Medicat ion List Clean Up) documented as of this encounter (statuses as of 07/06/2024) Active Problems Problem Noted Date Diagnosed Date Polyarthralgia 09/21/2023 Seborrheic keratoses 02/04/2021 Hyperlipidemia LDL goal <160 documented as of this encounter (statuses as of 07/06/2024) Immunizations Name Administration Dates Next Due COVID-19 mRNA, LNP-s, No Pre serve, 2-Dose Series ([employer]) 03/20/2021,07/21/2020,06/30/2020 COVID-19, MRNA-LNP, PF, 30 M CG/0.3 mL, 12 YRS AND ABOVE, IM ([facility]) 01/12/2024 Pneumococcal Conjugate Vacc, 13 Valent (Prevnar) [...] Sign Reading Time Taken Comments Blood Pressure 124/68 07/04/2024 2:04 PM EST Pulse 86 07/04/2024 2:04 PM EST Temperature 36.1 C (97 F) 07/04/2024 2:04 PM EST Respiratory Rate 95 07/04/2024 2:04 PM EST Oxygen Saturation - - Inhaled Oxygen Concentration - - Weight 76.7 kg (169 lb) 07/04/2024 2:04 PM EST Height - - Body Mass Index 25.32 03/06/2024 1:52 PM EST documented in this encounter Progress Notes * Brianna Astorga, DO - 07/06/2024 8:26 AM EST I attest that I have reviewed the student note and that the components of the history, the physicalexam, and the assessment and plan documented were performed in my presence with the student where Iverified the documentation and performed (or re-performed) the exam and medical decision making. Community acquired pneumonia of right upper lobe of lung (Primary) - Amoxicillin-Pot Clavulanate 875-125 MG Oral Tablet (Augmentin); Take 1 Tablet by mouth in the morning and 1 Tablet before bedtime. Do all this for 7 days. - Doxycycline Hyclate 100 MG Oral Capsule; Take 1 Capsule by mouth in the morning and 1 Capsule before bedtime. Do all this for 7 days. Take for 7 days. * Coral Dyson, Medical Student - 07/04/2024 2:40 PM EST Unless the attending has added an attestation supporting use of this note to document a billable service, the signature of the Licensed Professional on this note only acknowledges the presence of thestudent's note within the patient record and the Licensed Professional's note should be referred tofor clinical information and recommendations. Subjective: Peyton Gonzalez is a 68 year old female. Chief Complaint Patient presents with Pneumonia X-ray Tuesday showed pneumonia, upcoming knee surgery 07/25 HPI: Peyton Gonzalez is a 68 year old female with past medical history of hyperlipidemia, seborrheic keratosis, and polyarthralgia who presents for evaluation of pneumonia shown on chest X-ray two days ago. She is scheduled to have knee surgery on 07/25/24, and a routine pre-op chest X-ray from two days ago (07/02/24) found an early pneumonia of the right upper lobe. Patient states that she has had ongoing cough since March 2024. She was seen by Dr. Astorga on 03/06/24 and treated for acute cough with Azithromycin 250 mg. She states that she finished the course of this antibiotic, and did notice some improvement, but the cough never completely went away. She mentioned that he azithromycin caused her to have itching on her extremities. Her cough worsened bout 9 days ago, and is productive of yellow-tinged sputum. She also endorses fatigue, mild sore throat, occasional chills, body aches, shortness of breathe when walking uphill, wheezing, and chest pressure. She had a headache at the beginning of last week, but it has resolved. She has been taking Dayquil and Nightquil for the symptoms. She is concerned that her symptoms will not resolve in time for her knee surgery and it will be delayed. ROS Constitutional: +fatigue, +chills, +night sweats occasionally, no unexpected weight loss, no fever. Cardio: Patient denies palpitations. Pulm: +cough, +wheezing, +SOB with exertion, +chest pressure GI: Patient denies nausea, vomiting, diarrhea, constipation, abdominal pain, hematochezia : Patient denies hematuria, dysuria, polyuria, flank pain. Neuro: Patient denies dizziness, confusion, loss of consciousness. Integumentary: Patient denies rash or skin changes. PMH: Patient Active Problem List Diagnosis Hyperlipidemia LDL goal <160 Seborrheic keratoses Polyarthralgia Current Outpatient Medications Medication Sig Dispense Refill Benefiber Oral Powder Take by mouth . Atorvastatin Calcium 20 MG Oral Tablet (Lipitor) TAKE 1 TABLET EVERY MORNING 90 Tablet 2 Amoxicillin-Pot Clavulanate 875-125 MG Oral Tablet (Augmentin) Take 1 Tablet by mouth in the morning and 1 Tablet before bedtime. Do all this for 7 days. 14 Tablet 0 Doxycycline Hyclate 100 MG Oral Capsule Take 1 Capsule by mouth in the morning and 1 Capsule beforebedtime. Do all this for 7 days. Take for 7 days. 14 Capsule 0 Fish Oil 300 MG Oral Capsule Take by mouth. (Patient not taking: Reported on 07/04/2024) Vitamin D3-Vitamin C 1000-500 UNIT-MG Oral Capsule Take by mouth. (Patient not taking: Reported on 07/04/2024) No current facility-administered medications for this visit. Review of patient's allergies indicates: Allergen Reactions Azithromycin Itching of extremities Nickel Contact dermatitis Objective: BP 124/68 (BP Site: Left Arm, BP Position: Sitting, BP Cuff Size: Regular) | Pulse 86 | Temp 97 F(36.1 C) (Tympanic) | Resp 95 | Wt 169 lb (76.7 kg) | BMI 25.32 kg/m | BSA 1.93 m Physical Exam General: alert, no distress, and cooperative Head: Normocephalic, No masses, lesions, tenderness or abnormalities Eye Exam: PERRLA, conjunctiva are pink and non-injected, sclera clear Ears: External ears normal, Canals clear, TM's Normal Nose: no mucosal edema, no purulent discharge Oropharynx: no exudate, no erythema, lips, buccal mucosa, and tongue normal, and mucous membranes are moist Neck: supple, no adenopathy Heart: regular rate & rhythm and no murmur Lungs: lungs clear to auscultation Abdomen: normal bowel sounds Extremities: no edema ASSESSMENT/PLAN Atypical Pneumonia -Patient's ongoing history of cough, fatigue, mild sore throat, occasional chills, body aches, shortness of breathe when walking uphill, wheezing, and chest pressure coupled with chest X-ray from 2 days ago showing early pneumonia of the right upper lobe are consistent with a diagnosis of atypical pneumonia. -Plan: Dr. Astorga prescribed Augmentin (Amoxicillin-Clavulanate 875-215 MG) twice a day for 7 days plus Doxycycline Hyclate 100 mg twice a day for 7 days. These antibiotics were decided upon giventhat her symptoms from March did not clear from Azithromycin, as well as the fact that Azithromycin induced itching in the patient's extremities. Due to her upcoming surgery, Dr. Astorga wanted to make sure that the patient was covered for a wide spectrum of organisms. -Advised patient that repeat chest X-ray after treatment will no the needed as long as her symptomsresolve as the X-ray will like likely not reflect resolution of pneumonia until at least a month after treatment. -Patient is okay to undergo knee surgery as long as symptoms resolve and she is cleared by anesthesia. Follow up as needed. Coral Dyson, Medical Student documented in this encounter Plan of Treatment [...] of right upper lobe of lung- Primary documented in this encounter Advance Directives Documents on File Type Date Recorded Patient Hook Tender Expl anation Advance Directives and Living Will 01/15/2022 ADVANCE DIRECTIVE / LIVING WILL Power of Hospice Volunteer 01/15/2022 POWER OF A TTORNEY Care Teams Web Content Manager Relationship Specialty Start Date End Date Brianna Astorga DO [address] [place] [address] PCP - General Family Medicine 12/21/16 documented as of this encounter"
--- OUTSIDE RECORDS SUMMARY | 2024-07-25 20:59 | External Medical Summary | Summary of Care ---
Author Name Unknown Organization [facility] Address [address] [place] [address] Phone [phone] Care Team Providers Care Child Health Associate Name Role Phone Brianna Astorga DO Primary Care Provider [phone] Reason for Visit * Reason Onset Date Comments Advice 07/10/2024 Encounter Details Date Type Department Care Team (Late st Contact Info) Description 07/10/2024 Telephone Family Practice [facility] [address] [place] [address] Brianna Astorga DO [address] [facility] [place] [address] Advice Allergies Active Allergy Reactions Criticality Noted [...] mRNA, LNP-s, No Pre serve, 2-Dose Series ([employer]) 03/20/2021,07/21/2020,06/30/2020 COVID-19, MRNA-LNP, PF, 30 M CG/0.3 mL, 12 YRS AND ABOVE, IM ([facility]) 01/12/2024 Pneumococcal Conjugate Vacc, 13 Valent (Prevnar) [...] encounter Miscellaneous Notes * Telephone Encounter - Lakshmi Marroquin RN - 07/11/2024 11:25 AM EDT Please assist with making appt LARRY. HAS upcoming surgery 07/25/24 * Telephone Encounter - Francis Wilkins MD [...] documented in this encounter Plan of Treatment Upcoming Encounters Date Type Department Care Team (Late st Contact Info) Description 07/13/2024 9:40 AM EDT Office Visit Family Practice [facility] [address] [place] [address] Francis Wilkins MD [address] [place] [address] Health Maintenance Due Date Last Done Comments [...] Documents on File Type Date Recorded Patient Strand Galvanizer Expl anation Advance Directives and Living Will 01/15/2022 ADVANCE DIRECTIVE / LIVING WILL Power of Inbound Customer Service Representative 01/15/2022 POWER OF A TTORNEY Care Teams Child Health Associate Relationship Specialty Start Date End Date Brianna Astorga DO [address] [place] [address] PCP - General Family Medicine 12/21/16 documented as of this encounter
[2024-07-25] MEDS: TRANEXAMIC ACID / 0.7% NACL 1,000 MG/100 ML BAG IV SCH (21:59)
[2024-07-25] MEDS: ASPIRIN 81 MG ECTAB PO SCH (21:59)
[2024-07-25] MEDS: DOCUSATE SODIUM 100 MG CAP PO SCH (21:59)
[2024-07-25] MEDS: ceFAZolin 1000MG 1,000 MG/7.5 ML SYR IV SCH (21:59)
[2024-07-25] MEDS: ATORVASTATIN 20 MG TAB PO SCH (21:59)
[2024-07-25] MEDS: SENNA 8.6 MG TAB PO SCH ×2 (21:59→23:15)
[2024-07-25] MEDS: oxyCODONE HCL IR 5 MG TAB (IMMEDIATE RELEASE) PO PRN (22:41)
[2024-07-26 03:43] VITALS: RESP 16; TEMP 98.1
[2024-07-26] MEDS ORDERED: LR 500ML BOLUS, THEN 15ML/HR IV SCH (06:00)
[2024-07-26] MEDS: MULTIVITAMIN TAB PO SCH (08:06)
--- NOTE | 2024-07-26 08:54 | Orthopedic Progress Note ---
Date of Service July 26, 2024 Assessment & Plan (1) S/P right knee arthroscopy: POD 1 from a right total knee arthroplasty by Dr. Cerda -Lynsey, SCDs and aspirin 81 mg twice daily for DVT prophylaxis -Discharge medications already placed by Dr. Cerda. Patient may be discharged when she works with PT/OT. She already has home health/home PT set up -Follow-up as an outpatient in [address] Cerda for initial postop check and staple removal. Subjective Operation Date: 07/25/24 12:30 Actual Procedures p Right Total Knee Arthroplasty(Right) - Alfonso Cerda MD Patient is postop day 1 from a right total knee arthroplasty. She is doing very well. She has home health set up for when she is discharged. She will begin this tomorrow. States that she is doing well. Doing well on the pain control regimen. No other question or concerns. Review of Systems All systems reviewed & are unremarkable except as noted in HPI & below. Physical Exam General: Alert and oriented. No acute distress. Right knee: Inspection unremarkable. The Jayme wrap is dry and intact. She has good range of motion of the right knee, ankle and foot. Neuro vastly intact right lower extremity. Results & Data Results & Data Laboratory Results . Diagnostic Findings . PG Care Time/CCT Total # of Minutes Spent Total Time Spent with Patient: Total time spent is greater than 50% in coordination of care (as documented) at patient's floor/unit and/or counseling patient: Coding Level of Care Code 37646 Post Operative Follow-Up Diagnoses S/P right knee arthroscopy Z98.890
--- NOTE | 2024-07-26 09:21 | Discharge Summary ---
Date of Service July 26, 2024 Admission HPI (Per Admitting) Patient is a 68-year-old female who had a several year history of increasing right knee pain discomfort and progressive limitations due to the pain. She been through extensive conservative treatment which became less successful over time. X-rays show advanced right knee lateral compartment arthritis. She elected proceed with total knee arthroplasty. Patient reports an nickel allergy and therefore we used a [employer] 2 zirconium knee arthroplasty. Admission Exam (Per Admitting) Extremities: Grossly neurovascularly intact except as follows: Examination of the right knee reveals the patient walks with just a slight bit of a limp. She has got a valgus alignment to her knee. Small knee effusion. Range of motion is about 5 to 125. There is no instability. She has no pain with hip motion. Principal Diagnosis Same as "Discharge Diagnosis" noted below under Discharge Instructions. Discharge Exam General: Alert and oriented. No acute distress. Right knee: Inspection unremarkable. The Jayme wrap is dry and intact. She has good range of motion of the right knee, ankle and foot. Neuro vastly intact right lower extremity. Discharge Data Procedures Performed Operation Date: 07/25/24 12:30 Actual Procedures p Right Total Knee Arthroplasty(Right) - Alfonso Cerda MD Ordered Studies 07/25/24 12:26 US - OR guided needle placemen Stat 07/26/24 05:00 US - OR guided needle placemen Routine Hospital Course (1) S/P right knee arthroscopy: POD 1 from a right total knee arthroplasty by Dr. Cerda -Lynsey, SCDs and aspirin 81 mg twice daily for DVT prophylaxis -Discharge medications already placed by Dr. Cerda. Patient may be discharged when she works with PT/OT. She already has home health/home PT set up -Follow-up as an outpatient in [address] Cerda for initial postop check and staple removal. PG Care Time/CCT Total # of Minutes Spent Total Time Spent with Patient: Total time spent is greater than 50% in coordination of care (as documented) at patient's floor/unit and/or counseling patient: Discharge Plan Discharge Items Patient Disposition: Home - Home Health Services Reason For Visit: Right Knee Osteoarthritis Discharge Diagnosis: Right Knee Replacement Activity: Per Instructions section Weightbearing: Full weightbearing Non-emergency contact: Surgeon Call non-emergency contact if: you have any medication questions Follow-up/Referrals: Brianna Astorga, [Primary Care Provider] - Diet: Regular Addtl Attending Provider Instructions: ACTIVITY RECOMMENDATIONS: Diet: * You may resume previous diet. Physical Therapy: * You will go to physical therapy three times each week for four to six weeks after your surgery in order to regain your knee range of motion and to retrain your knee to work properly. * It is just as important to make sure you are getting your knee perfectly straight as it is to regain your knee bend. * Taking a pain pill an hour before therapy can help you have a more productive and comfortable therapy session. Home Exercise: * You were shown a series of exercises (heel props, heel slides, etc.) in the hospital. Do these exercises three to four times each day including the exercises you were shown in physical therapy. Walking: * Get up and walk several times each day. For the first four weeks, try not to stand or walk for more than one hour at a time. If you do stand or walk for more than one hour, you will not hurt anything, but your knee and leg will likely swell. * As you feel comfortable, you may change from the walker or crutches to a cane and then to independent walking. MEDICATIONS: New Medicine: * You will likely be taking one or more of these medications: 1. Oxycodone - A quick and shorter-acting pain medication. Take one to two tablets every six hours to lessen your pain. 3. Aspirin - Thins your blood to lessen the chance of forming a blood clot. * The most common side effects of pain medicine and iron are nausea and constipation. If nausea or constipation is too much of a problem or if you have any questions about your new medicines or doses, call [facility] at . We will try to help you manage these issues. "VERY IMPORTANT TO READ AND REVIEW" Pain: * The immediate post-operative period after knee replacement surgery is often quite painful. * You are given a prescription for pain medicine. You should take it, as directed, when you need it, especially before physical therapy and before going to bed. Pain that interferes with sleep is very common and can last several months. * You will likely need pain medicine for the first four to six weeks. It will not stop all of the pain. The pain will lessen and as you feel better, you may change to milder pain medicine such as Tylenol. * The most common side effects of pain medicine are nausea and constipation, so don't take more than you need. SPECIAL CARE INSTRUCTIONS: TEDs/Elastic Stockings: * The white elastic stockings help limit swelling and prevent blood clots from forming in your legs. The more you wear them, the more they work. * Wear them for six weeks after knee replacement surgery and four weeks after partial knee replacement. Incision Site Care: * Remove dressing postoperative day 2 and then shower. Keep direct shower pressure off the incision site. * After showering, cover joaquin with dry gauze and change daily or more frequently if the dressing is getting saturated with drainage. * Use the SPIKE stockings to hold dressing in place. DO NOT apply tape on the skin. * May completely stop using bandage if wound is dry and no drainage * [place] are removed between 2 and 3 weeks post-op. If your follow-up appointment is made before 2 weeks, please have your appointment re- scheduled. It is too early to remove the joaquin. Prevention of Infection: * Take antibiotics one hour before any dental cleaning, dental work, urological procedure, gastrointestinal procedure or any invasive surgery in order to prevent your new joint from getting infected. * You may get the antibiotics from the doctor performing the procedure or you may call our office at [phone] before and we will call in a prescription to the pharmacy of your choice. Things to Watch For: * Drainage from the incision site that occurs more than one week after your surgery. * Severely increased knee/leg pain or swelling. * Increased redness at the incision site. * Fever above 102 degrees Fahrenheit. * Unusual chest pain or shortness of breath. * Unusual pain or burning with urination. Call [facility] at [phone] with any of the above problems or if you have any questions about your medicines or recovery. FOLLOW UP VISIT: Make an appointment to see your doctor for approximately two weeks after surgery for a progress check and staple removal by calling the office at [phone]. Pending Studies at Discharge: No Stand-Alone Forms: [facility] Smoking Cessation Medications and HI Order Prescriptions: New tramadol 50 mg tablet 50 - 100 mg PO Q8H PRN (Reason: pain) Qty: 30 0RF Continued ondansetron 4 mg tablet,disintegrating 4 mg PO Q8 PRN (Reason: nausea) Qty: 20 1RF Rx Instructions: Take as needed for nausea sennosides [Senokot] 8.6 mg tablet 8.6 mg PO BID 14 Days Qty: 28 0RF Rx Instructions: Take two times a day to prevent/treat constipation acetaminophen [Tylenol Extra Strength] 500 mg tablet 1,000 mg PO TID 30 Days Qty: 180 0RF Rx Instructions: Take 3 times per day to lessen pain. aspirin [Amy Low Dose Aspirin] 81 mg tablet,delayed release (DR/EC) 81 mg PO BID 45 Days Qty: 90 0RF Rx Instructions: Take to prevent blood clots. cefadroxil 500 mg capsule 500 mg PO BID 7 Days Qty: 14 0RF Rx Instructions: Take 1 cap twice a day to prevent infection atorvastatin 20 mg tablet 20 mg PO HS Discontinued oxycodone 5 mg tablet 5 - 10 mg PO Q8H PRN (Reason: pain) Qty: 40 0RF Rx Instructions: Take as needed for pain. Do not take more than 6 tablets per day. ibuprofen 400 mg tablet 400 mg PO Q8H PRN (Reason: Pain) Admission Data Admit Date/Time: 07/25/24 14:29 Attending Provider: Alfonso Cerda Admit Provider: Alfonso Cerda Primary Care Provider: Brianna Astorga Other Providers: [facility] Other Interventions: Discharge Summary Assessment (RN) Last Done: 07/26/24 13:37
[2024-07-26 10:37] VITALS: O2SAT 96
[2024-07-26 10:44] LABS: Hematocrit (blood only) 32.4 % (37.0-47.0); Hemoglobin 10.6 g/dl (12.0-16.0); Mean Corpuscular Hemoglobin 29.4 pg (25.0-34.0); Mean Corpuscular Hgb Conc 32.7 g/dL (32.0-36.0); Mean Corpuscular Volume 89.8 fL (80.0-100.0); Mean Platelet Volume 10.1 fL (9.4-12.4); Platelet Count 192 K/uL (130-400); RDW Coefficient of Variation 12.7 % (11.5-14.5); Red Blood Count 3.61 M/uL (4.20-5.40); White Blood Count 9.64 K/ul (4.8-10.8)
[2024-07-26 11:18] LABS: BUN Creatinine Ratio 16.2 (10-20); Calcium 8.3 mg/dl (8.6-10.3); Creatinine Clr Calc Pharmacy 52.7 ml/min; Potassium 3.8 mmol/L (3.5-5.1)
[2024-07-26] MEDS: dexAMETHasone 10 MG in SYRINGE 0 ML IV SCH (12:15)
[2024-07-26 13:19] VITALS: PULSE 88
[2024-07-26 13:39] VITALS: BP 113/72
== END 2024-07-26 14:25 | disposition home health service (06) ==
LOC: 3W 10:49 → ASU 10:49
DX: M17.11 Unilateral primary osteoarthritis, right knee; Z79.899 Other long term (current) drug therapy; Z91.048 Other nonmedicinal substance allergy status; Z79.891 Long term (current) use of opiate analgesic; Z88.1 Allergy status to other antibiotic agents; Z87.440 Personal history of urinary (tract) infections; Z79.82 Long term (current) use of aspirin; M25.461 Effusion, right knee